=== PATIENT | male | born 1945 | race Caucasian/White ===

== ENCOUNTER → 2024-08-29 17:32 | Outpatient (REF) | payer MEDICARE, BC, SELFPAY | LOC: MRI 3T 17:32 | PROVIDERS: ATTENDING PHYSICIAN Psychiatry & Neurology Vascular Neurology; FAMILY PHYSICIAN Nurse Practitioner Adult Health | DX: I69.314 Frontal lobe and executive function deficit following cerebral infarction (principal); I63.81 Other cerebral infarction due to occlusion or stenosis of small artery; Z86.73 Personal history of transient ischemic attack (TIA), and cerebral infarction without residual deficits; G45.9 Transient cerebral ischemic attack, unspecified | CPT/HCPCS: 70544; 70547 ==